=== PATIENT | male | born 1990 | race Caucasian/White ===

== ENCOUNTER 2022-09-05 00:44 | Emergency (ER) | payer MEDICAID, OTHER ==
[~2022-09-05] VITALS: Ht 165.1 cm; Wt 59.0 kg
[~2022-09-05 00:44] MED LIST: WELLBUTRIN
[2022-09-05] MEDS ORDERED: LORAZEPAM 2MG/ML CPJ IV STA (01:33)
[2022-09-05] MEDS ORDERED: SODIUM CHLORIDE 0.9% 1,000 ML IV ONE (01:45)
[2022-09-05 02:59] LABS: BASOPHILS % 0.6 % (0.0-2.0); EOSINOPHILS % 0.2 % (0.0-5.0); HEMATOCRIT. 46.1 % (42.0-52.0); HEMOGLOBIN. 16.7 g/dL (14.0-18.0); LYMPHOCYTES % 12.3 % (20.0-50.0); MEAN CORPUSCULAR HEMOGLOBIN 33.9 pg (28.0-32.0); MEAN CORPUSCULAR VOLUME 93.7 fL (80.0-94.0); MEAN PLATELET VOLUME 6.5 fl (7.4-10.4); MONOCYTES % 4.1 % (2.0-8.0); NEUTROPHILS % 82.8 % (40.0-76.0); PLATELET 473 x1000/uL (130-400); RED BLOOD CELL COUNT 4.92 mill/uL (4.7-6.1); RED CELL DISTRIBUTION WIDTH 12.7 % (11.6-14.6)
[2022-09-05 03:06] LABS: CHLORIDE 102 mEq/L (98-107)
[2022-09-05 03:15] LABS: ETHANOL BLOOD < 10 mg/dL
[2022-09-05 03:41] VITALS: BP 128/63
== END 2022-09-05 05:42 | disposition home or self-care (01) ==
LOC: ER 00:44
DX: R00.0 Tachycardia, unspecified (principal); F41.9 Anxiety disorder, unspecified; R07.9 Chest pain, unspecified; F32.A Depression, unspecified
CPT/HCPCS: 36415; 71045; 80053; 80320; 84484; 85025; 96361; 96374; 99291; J2060; J7030; 99285; G0480

== ENCOUNTER 2022-09-29 04:35 | Emergency (ER) | payer MEDICAID ==
[~2022-09-29] VITALS: Ht 172.7 cm; Wt 77.0 kg
[2022-09-29] MEDS ORDERED: SODIUM CHLORIDE 0.9% 1,000 ML IV ONE (05:15)
[2022-09-29] MEDS ORDERED: ONDANSETRON HCL 4MG/2ML INJ IV ONE ×2 (06:00→11:00)
[2022-09-29 06:03] LABS: BASOPHILS % 0.3 % (0.0-2.0); EOSINOPHILS % 0.4 % (0.0-5.0); HEMATOCRIT. 42.3 % (42.0-52.0); LYMPHOCYTES % 9.8 % (20.0-50.0); MEAN CORPUSCULAR HEMOGLOBIN 33.5 pg (28.0-32.0); MEAN CORPUSCULAR VOLUME 94.6 fL (80.0-94.0); MEAN PLATELET VOLUME 6.9 fl (7.4-10.4); MONOCYTES % 6.1 % (2.0-8.0); NEUTROPHILS % 83.4 % (40.0-76.0); PLATELET 375 x1000/uL (130-400); RED BLOOD CELL COUNT 4.48 mill/uL (4.7-6.1); RED CELL DISTRIBUTION WIDTH 12.8 % (11.6-14.6)
[2022-09-29 06:08] LABS: CHLORIDE 104 mEq/L (98-107)
[2022-09-29 06:10] LABS: INR 1.1; PROTHROMBIN TIME 11.4 sec (9.6-11.0)
[2022-09-29 06:16] LABS: ETHANOL BLOOD < 10 mg/dL
[2022-09-29] MEDS ORDERED: POTASSIUM CHLORIDE 20MEQ TABLET SR PO NR ×2 (06:30→06:45)
[2022-09-29] MEDS ORDERED: MORPHINE SULFATE 4 MG/ML CPJ (NOT FOR IM USE) IV ONE (11:00)
[2022-09-29 14:22] LABS: CHLORIDE 102 mEq/L (98-107)
[2022-09-29 14:31] LABS: CREATINE KINASE 171 IU/L (39-308)
[2022-09-29 17:00] VITALS: BP 120/78
== END 2022-09-29 18:09 | disposition home or self-care (01) ==
LOC: ER 04:42
DX: T38.3X1A Poisoning by insulin and oral hypoglycemic [antidiabetic] drugs, accidental (unintentional), initial encounter (principal); Y92.89 Other specified places as the place of occurrence of the external cause; R11.2 Nausea with vomiting, unspecified; F41.9 Anxiety disorder, unspecified; F32.9 Major depressive disorder, single episode, unspecified
CPT/HCPCS: 36415; 80053; 80307; 80320; 80329; 82550; 83605; 83690; 85025; 85610; 93005; 96361; 96374; 96375; 96376; 99291; J2270; J2405; J7030; G0480

== ENCOUNTER 2025-01-25 23:30 | Emergency (ER) | payer MEDICAID ==
[~2025-01-25] VITALS: Ht 165.1 cm; Wt 64.0 kg
[2025-01-25 23:33] VITALS: O2SAT 99
[2025-01-26] MEDS ORDERED: CYCL10TA21 MT (01:05)
[2025-01-26] MEDS ORDERED: LIDO700A30 TP (01:06)
[2025-01-26 01:30] VITALS: TEMP 36.9; O2SAT 98
[2025-01-26] MEDS: ACETAMINOPHEN 325MG TABLET PO ONE (01:31)
[2025-01-26] MEDS: HYDROCODONE/ACETAMINOPHEN 7.5/325MG TABLET PO ONE (01:34)
[2025-01-26 01:38] VITALS: PULSE 74
[2025-01-26] MEDS: KETOROLAC 15MG/ML VIAL IM ONE (01:38)
[2025-01-26 01:39] VITALS: BP 110/71; RESP 18
[2025-01-26] MEDS: LIDOCAINE 5% PATCH TOP SCH (01:39)
== END 2025-01-26 02:00 | disposition home or self-care (01) ==
LOC: ER 23:30
DX: M54.50 Low back pain, unspecified (principal)
CPT/HCPCS: 99284; 96372; J1885; Z7610 ×2